=== PATIENT | female | born 1990 | race African-American/Black ===

== ENCOUNTER 2022-08-22 10:57 | Emergency (ER) | payer MEDICAID ==
[~2022-08-22] VITALS: Ht 160 cm; Wt 104.3 kg
--- NOTE | 2022-08-22 11:26 | NUR ---
BIBS C/O BODY PAIN SINCE YESTERDAY PT STATE "MY SICKLE CELL IS FLARING UP".
--- NOTE | 2022-08-22 11:40 | NUR ---
AT BEDSIDE FOR EVAL.
[2022-08-22] MEDS ORDERED: diphenhydrAMINE HCL 50 MG/ML VIAL ONE ×2 (11:52→13:28)
[2022-08-22] MEDS ORDERED: HYDROMORPHONE 1 MG/1 ML DISP.SYRIN ONE ×2 (11:52→13:28)
[2022-08-22] MEDS ORDERED: HYDROMORPHONE 1 MG/1 ML DISP.SYRIN IM ONE ×2 (12:00→13:30)
[2022-08-22] MEDS ORDERED: diphenhydrAMINE HCL 50 MG/ML VIAL IM ONE ×2 (12:00→13:30)
--- NOTE | 2022-08-22 12:55 | NUR ---
AT BEDSIDE FOR REVIEW
--- NOTE | 2022-08-22 13:49 | NUR ---
Patient discharged to home in stable condition. Written and verbal after care instructions given. Patient verbalizes understanding of instruction.
[2022-08-22 13:50] VITALS: BP 125/80
== END 2022-08-22 13:49 | disposition home or self-care (01) ==
LOC: ER 11:05
DX: D57.00 Hb-SS disease with crisis, unspecified (principal); Z60.2 Problems related to living alone
CPT/HCPCS: 99284; 96372 ×2; J1200 ×2; J1170 ×2

== ENCOUNTER 2022-08-24 23:17 | Emergency (ER) | payer MEDICAID ==
[~2022-08-24] VITALS: Ht 160 cm; Wt 104.3 kg
--- NOTE | 2022-08-25 00:39 | NUR ---
Patient AOx4, able to express her concerns. Patient states she has been in pain for 2 days, believes its due to sickle cell. Patient states she recently moved to [place] and has not established care with her new PCP. Discussed plan of care, patient verbalized agreement.
[2022-08-25] MEDS ORDERED: IV NS 0.9% 1,000 ML IV ONE (01:00)
[2022-08-25] MEDS ORDERED: ONDANSETRON HCL/PF - ER 4 MG/2 ML VIAL IV ONE (01:00)
[2022-08-25] MEDS ORDERED: diphenhydrAMINE HCL 50 MG/ML VIAL IV ONE ×2 (01:00→03:00)
[2022-08-25] MEDS ORDERED: HYDROMORPHONE 1 MG/1 ML DISP.SYRIN IV ONE ×3 (01:00→04:30)
[2022-08-25] MEDS ORDERED: diphenhydrAMINE HCL 50 MG/ML VIAL ONE ×2 (01:59→03:15)
[2022-08-25] MEDS ORDERED: ONDANSETRON HCL/PF 4 MG/2 ML VIAL ONE (01:59)
[2022-08-25] MEDS ORDERED: HYDROMORPHONE 1 MG/1 ML DISP.SYRIN ONE ×3 (01:59→04:29)
--- NOTE | 2022-08-25 02:00 | NUR ---
PAtient refused blood draw, states she does not need it, made aware
[2022-08-25] MEDS ORDERED: KETOROLAC TROMETHAMINE INJ 30 MG/ML VIAL IV ONE ×2 (03:00→04:30)
[2022-08-25] MEDS ORDERED: KETO10TA2 PO (03:10)
[2022-08-25] MEDS ORDERED: OXYC15TA2 PO (03:10)
[2022-08-25] MEDS ORDERED: KETOROLAC TROMETHAMINE 15 MG/ML VIAL ONE (03:15)
[2022-08-25 05:00] VITALS: BP 123/74
== END 2022-08-25 05:01 | disposition home or self-care (01) ==
LOC: ER 23:20
DX: D57.00 Hb-SS disease with crisis, unspecified (principal); Z60.2 Problems related to living alone; Z79.899 Other long term (current) drug therapy; Z88.0 Allergy status to penicillin; Z88.1 Allergy status to other antibiotic agents
CPT/HCPCS: 99284; 96374; 96375; 96361; 96376; J1200 ×2; J2405 ×2; J7030; J1170 ×3; J1885

== ENCOUNTER 2022-11-15 03:00 | Emergency (ER) | payer SELFPAY ==
[~2022-11-15] VITALS: Ht 160 cm; Wt 104.3 kg
[~2022-11-15 03:00] MED LIST: KETO10TA2 PO; OXYC5CAP18 PO
[2022-11-15] MEDS ORDERED: HYDROMORPHONE 1 MG/1 ML DISP.SYRIN IV ONE ×2 (03:30→05:30)
[2022-11-15] MEDS ORDERED: IV NS 0.9% 1,000 ML IV ONE (03:30)
[2022-11-15] MEDS ORDERED: KETOROLAC TROMETHAMINE INJ 30 MG/ML VIAL IV ONE (03:30)
[2022-11-15 03:33] VITALS: TEMP 99
[2022-11-15] MEDS ORDERED: KETOROLAC TROMETHAMINE 15 MG/ML VIAL ONE (03:46)
[2022-11-15] MEDS ORDERED: HYDROMORPHONE 1 MG/1 ML DISP.SYRIN ONE ×2 (03:46→05:15)
[2022-11-15] MEDS ORDERED: diphenhydrAMINE HCL 50 MG/ML VIAL IV ONE (04:00)
[2022-11-15 04:10] LABS: BASOPHILS % (AUTO) 0.2 % (0.0-2.0); EOSINOPHILS # (AUTO) 0.2 K/uL (0.0-0.7); EOSINOPHILS % (AUTO) 2.1 % (0.0-6.0); HEMATOCRIT 33 % (33-45); HEMOGLOBIN 10.1 g/dL (11.5-14.8); LYMPHOCYTES # (AUTO) 2.3 K/uL (0.8-4.8); LYMPHOCYTES % (AUTO) 24.6 % (20.0-44.0); MEAN CORPUSCULAR HEMOGLOBIN 24 PG (26.0-33.0); MEAN CORPUSCULAR HGB CONC 31 g/dl (31.0-36.0); MEAN CORPUSCULAR VOLUME 77 fL (82-100); MONOCYTES # (AUTO) 0.7 K/uL (0.1-1.30); MONOCYTES % (AUTO) 7.5 % (2.0-12.0); NEUTROPHILS # (AUTO) 6.2 K/uL (1.8-8.9); NEUTROPHILS % (AUTO) 65.6 % (43.0-81.0); PLATELET COUNT (AUTO) 465 K/uL (150-450); RED BLOOD CELL COUNT(AUTO) 4.23 MIL/uL (4.0-5.2); RED CELL DISTRIBUTION WIDTH 17.8 % (11.5-15.0); RETICULOCYTE COUNT 1.3 % (0.6-2.5); WHITE BLOOD COUNT (AUTO) 9.4 K/uL (4.3-11.0)
[2022-11-15] MEDS ORDERED: diphenhydrAMINE HCL 50 MG/ML VIAL ONE (04:17)
[2022-11-15 05:32] VITALS: BP 139/88; O2SAT 99
== END 2022-11-15 05:32 | disposition home or self-care (01) ==
LOC: ER 03:04
DX: D57.00 Hb-SS disease with crisis, unspecified (principal); Z79.899 Other long term (current) drug therapy; Z60.2 Problems related to living alone; Z88.0 Allergy status to penicillin; Z88.1 Allergy status to other antibiotic agents
CPT/HCPCS: 99284; 96374; 96375; 96361; 96376; 85025; 85045; 36415; J1200; J7030; A4223; J1170 ×2; J1885